=== PATIENT | female | born 1940 | race Caucasian/White ===

== ENCOUNTER → 2020-04-25 | Emergency (ER) | payer OTHER | END | disposition left against medical advice (07) | LOC: ER 23:30 | DX: Z53.20 Procedure and treatment not carried out because of patient's decision for unspecified reasons (principal) ==

== ENCOUNTER → 2022-11-22 | Emergency (ER) | payer OTHER ==
[~2022-11-22] MED LIST: CARVEDILOL25 MG; CHILDREN'S ASPI81 MG PO; COREG CR40 MG PO; HORIZANT300 MG PO; LIPITOR40 M1 PO; RAMIPRIL1.25 MG PO
== END | disposition home or self-care (01) ==
LOC: ER 19:20
DX: M79.662 Pain in left lower leg (principal); J45.909 Unspecified asthma, uncomplicated; G47.33 Obstructive sleep apnea (adult) (pediatric); M19.90 Unspecified osteoarthritis, unspecified site; I10 Essential (primary) hypertension; G43.809 Other migraine, not intractable, without status migrainosus; M54.30 Sciatica, unspecified side; G62.9 Polyneuropathy, unspecified; Z86.72 Personal history of thrombophlebitis

== ENCOUNTER 2022-11-23 06:51 | Emergency (ER) | payer OTHER ==
[~2022-11-23] VITALS: Ht 160 cm; Wt 65.3 kg
[2022-11-23] MEDS ORDERED: COREG CR40 MG PO (07:16)
[2022-11-23] MEDS ORDERED: RAMIPRIL1.25 MG PO (07:17)
[2022-11-23] MEDS ORDERED: CARVEDILOL25 MG (08:52)
[2022-11-23] MEDS ORDERED: CHILDREN'S ASPI81 MG PO (08:52)
[2022-11-23] MEDS ORDERED: LIPITOR40 M1 PO (08:52)
[2022-11-23] MEDS ORDERED: HORIZANT300 MG PO (08:53)
== END 2022-11-23 12:47 | disposition home or self-care (01) ==
LOC: ER 06:51
DX: M79.662 Pain in left lower leg (principal); J45.909 Unspecified asthma, uncomplicated; I10 Essential (primary) hypertension; Z86.72 Personal history of thrombophlebitis; G43.809 Other migraine, not intractable, without status migrainosus; G47.33 Obstructive sleep apnea (adult) (pediatric); M54.30 Sciatica, unspecified side

== ENCOUNTER 2024-04-18 06:57 | Day surgery (SDC) | payer OTHER ==
[2024-04-17 13:50] VITALS: BP 150/73
[~2024-04-18] VITALS: Ht 160 cm; Wt 65.3 kg
[2024-04-18] MEDS ORDERED: CEFAZOLIN SODIUM 1,000 MG VIAL IV ONE (13:00)
[2024-04-18] MEDS ORDERED: CHLORHEXIDINE GLUCONATE 120 ML BOTTLE TOP ONE (13:00)
[2024-04-18] MEDS ORDERED: MORPHINE SULFATE 4 MG/ML VIAL IV ONE (15:40)
== END 2024-04-18 16:40 | disposition home or self-care (01) ==
LOC: CIR.AMB 06:57
PROVIDERS: ATTEND Surgery
DX: D05.11 Intraductal carcinoma in situ of right breast (principal); D48.62 Neoplasm of uncertain behavior of left breast; R92.1 Mammographic calcification found on diagnostic imaging of breast; J45.909 Unspecified asthma, uncomplicated; G47.30 Sleep apnea, unspecified; E78.5 Hyperlipidemia, unspecified